=== PATIENT | female | born 1990 | race Caucasian/White ===

== ENCOUNTER 2020-02-15 12:35 | Outpatient (CLI) | payer OTHER, SELFPAY ==
--- NOTE | 2020-02-15 | ECHO_ITS ---
Patient Info Name: Chyna Dominique Age: 29 years : 1990 Gender: Female Ht: 65 in Wt: 145 lbs BSA: 1.75 m2 HR: 92 bpm BP: 121 / 73 mmHg Heart Rhythm: Sinus Rhythm Technical Quality: Fair Exam Date: 02/15/2020 12:54 PM Exam Location: [facility] Patient Status: Outpatient Admit Date: 02/15/2020 Staff Ordering Physician: Misael, Vadim JUNG [employer] Project Manager: Janiya Patel RDCS Attending Provider: Misael, Vadim JUNG Exam Type: CA echo doppler color flow Study Info Indications R07.89 - Other chest pain Complete two-dimensional, color flow and Doppler transthoracic echocardiogram is performed. Summary 1. Left ventricular chamber size, wall thickness, systolic and diastolic function are normal with no regional wall motion abnormalities with an estimated ejection fraction of >70%. 2. Normal valve structure and function. 3. Normal estimated pulmonary pressure. 4. Normal sinus rhythm. Left Ventricle Left ventricular chamber size, wall thickness, systolic and diastolic function are normal with no regional wall motion abnormalities with an estimated ejection fraction of >70%. Left Ventricular Outflow Tract Name Value Normal LVOT 2D LVOT Diameter 1.8 cm LVOT Doppler LVOT Peak Gradient 5 mmHg LVOT Mean Gradient 3 mmHg LVOT VTI 19 cm LVOT VTI/AV VTI Ratio 0.8 LVOT Stroke Volume 47 ml LVOT CO 3.8 l/min LVOT CI 2.2 l/min/m2 Pulmonic Valve Name Value Normal RVOT Doppler RVOT Peak Gradient 2 mmHg PV Doppler PV Peak Gradient 3 mmHg Mitral Valve Name Value Normal MV Doppler MV Decel [place] 388 cm/s2 MV PHT 67 ms MV Area (PHT) 3.3 cm2 4.0-5.0 MV Diastolic Function MV E Peak Velocity 89 cm/s MV A Peak Velocity 42 cm/s MV E/A 2.2 MV Decel Time 230 ms Tricuspid Valve Name Value Normal TV Regurgitation Doppler
== END 2020-02-15 12:36 | disposition home or self-care (01) ==
PROVIDERS: PCP Nurse Practitioner Family; Visit Provider Nurse Practitioner Family
DX: R07.89 Other chest pain (principal)
CPT/HCPCS: 93306

== ENCOUNTER 2022-04-03 10:15 | Emergency (ER) | payer OTHER, SELFPAY ==
[2022-04-03 10:25] VITALS: BP 108/71; PULSE 88; RESP 18; TEMP 36.6; O2SAT 100
--- NOTE | 2022-04-03 10:48 | ED.URI ---
HPI - URI/Sore Throat General Chief Complaint: Upper Respiratory Infection Stated Complaint: Head pressure, congestion Time Seen by Provider: 04/03/22 10:48 Source: patient and RN notes reviewed Mode of arrival: ambulatory Limitations: no limitations History of Present Illness HPI Narrative: 31 y/o female presented for c/o sinus pressure and congestion for 4 days. Started with diarrhea today. Negative home covid test yesterday. Denies sick contacts. Taking otc meds for symptoms. Denies cp, sob, wheezing, fever or chills. MD elicited complaint: cough Related Data Home Medications Medication Instructions Recorded Confirmed No Home Medications 04/03/22 04/03/22 Allergies Allergy/AdvReac Type Severity Reaction Status Date / Time Penicillins Allergy Unknown HIVES Verified 04/03/22 10:23 amoxicillin Allergy Hives Verified 04/03/22 10:23 Review of Systems Review of Systems: CONSTITUTIONAL:denies malaise, chills, sweats, fever EYES: Denies visual changes, redness, or discharge ENT: Reports rhinorrhea, congestion, sinus pain, denies otalgia, sore throat CARDIOVASCULAR: Denies chest pain, palpitations, edema RESPIRATORY: Reports cough, post nasal drainage. Denies dyspnea GASTROINTESTINAL: Denies abdominal pain, nausea, vomiting SKIN: Denies rash or itching MUSCULOSKELETAL: denies myalgia NEUROLOGIC: Denies headache Exam Narrative: GENERAL: Ill-appearing, nontoxic EYES: conjunctivae clear ENT: Mucous membranes moist. TM pearly kang with dull light reflex bilaterally; no tragal tenderness. Oropharynx erythematous without lesions or exudate, no drooling, no hoarseness, no trismus, uvula midline. CHEST: Clear to auscultation, breath sounds equal. HEART: Regular rate and rhythm. No murmur heard. SKIN: Warm, dry, no rash. NEURO: Alert and oriented x3. PSYCH: Normal mood and affect Course Course Emergency Course: Patient is aware of diagnosis, understands and agrees to treatment plan. Anticipatory guidance given. Patient agrees to follow-up as directed and is aware of reasons to seek care at the emergency department. Portions of this record may have been created with voice recognition software Level of Care: Express Care Visit Vital Signs Vital signs: Vital Signs Temperature 97.8 F 04/03/22 10:25 Pulse Rate 88 04/03/22 10:25 Respiratory Rate 18 04/03/22 10:25 Blood Pressure 108/71 04/03/22 10:25 Pulse Oximetry 100 04/03/22 10:25 Oxygen Delivery Room Air 04/03/22 10:25 Temperature 97.8 F 04/03/22 10:25 Pulse Rate 88 04/03/22 10:25 Respiratory Rate 18 04/03/22 10:25 Blood Pressure 108/71 04/03/22 10:25 Pulse Oximetry 100 04/03/22 10:25 Oxygen Delivery Room Air 04/03/22 10:25 reviewed MDM - URI/Sore Throat MDM Narrative Medical decision making narrative: Negative covid result reviewed with pt. advised supportive measures and signs/symptoms to go to the ER. Pt is appropriate for outpt treatment and f/u. Differential Diagnosis Differential diagnosis: Likely upper respiratory infection, sinusitis and viral infection Discharge Plan Discharge Clinical Impression: Upper respiratory infection Qualifiers: URI type: unspecified URI Qualified Code(s): J06.9 - Acute upper respiratory infection, unspecified Patient Disposition: Home, Self-Care Condition: Stable Instructions: Allergic Rhinitis (ED) Additional Instructions: Your Rapid COVID test was negative today. If you are symptomatic with reason to believe you have COVID-19, there is a high possibility your rapid test may not have detected the virus. You should follow appropriate guidelines regarding quarantine, hand washing, mask wearing, and social distancing Rest, stay hydrated. Tylenol, Flonase/nasal spray, Zyrtec, cough syrup and cold/flu medications for symptoms as needed Follow up with your primary care provider as needed in 1-2 weeks Go to the ER for worsening symptoms or concerns Prescriptions: No A
== END 2022-04-03 11:15 | disposition home or self-care (01) ==
PROVIDERS: Emergency Provider Nurse Practitioner Family
DX: J06.9 Acute upper respiratory infection, unspecified (principal); Z20.822 Contact with and (suspected) exposure to COVID-19
CPT/HCPCS: 87426; 99213; C9803; G0463

== ENCOUNTER 2022-07-25 12:42 | Emergency (ER) | payer OTHER, SELFPAY ==
[2022-07-25 12:49] VITALS: BP 109/67; PULSE 94; RESP 18; TEMP 36.6; O2SAT 100
--- NOTE | 2022-07-25 13:08 | ED.NAVMDI ---
HPI - Nausea/Vomiting/Diarrhea General Chief complaint: Nausea/Vomiting/Diarrhea Stated complaint: Abdominal Pain/Nausea/ Vomiting/Diarrhea Time Seen by Provider: 07/25/22 13:14 Source: patient and RN notes reviewed Mode of arrival: ambulatory Limitations: no limitations History of Present Illness HPI Narrative: 31-year-old female presents concern for 4 day history of headache, nausea, abdominal cramping and diarrhea. Reports her menstrual period is heavier than usual. She denies fever, chills, sweats. Denies vomiting. MD elicited complaint: nausea and diarrhea Related Data Allergies Allergy/AdvReac Type Severity Reaction Status Date / Time Penicillins Allergy Unknown HIVES Verified 07/25/22 13:00 amoxicillin Allergy Hives Verified 07/25/22 13:00 Review of Systems Review of Systems: CONSTITUTIONAL: Reports malaise. Denies chills, sweats, or fever. ENT: Denies rhinorrhea, congestion, sinus pain, otalgia or sore throat. CARDIOVASCULAR: Denies chest pain, palpitations, or edema. RESPIRATORY: Denies cough or dyspnea. GASTROINTESTINAL: Denies abdominal pain, vomiting, bloody, or mucous stools. Reports nausea and cramping GENITOURINARY: Denies dysuria or hematuria. MUSCULOSKELETAL: Denies myalgia. NEUROLOGIC: Reports headache. All systems reviewed & are unremarkable except as noted in HPI and below PMFSH Comments At time of signature, agree with nursing past medical, surgical, social and family history. There is no relevant family history pertinent to the presenting complaint Exam Narrative: GENERAL: Well-appearing, well-nourished, and in no acute distress. HEAD: Normocephalic, atraumatic. EYES: PERRLA, conjunctivae clear, and EOMI. ENT: Nares clear, turbinates pink, no rhinorrhea or epistaxis. Mucous membranes moist. Oropharynx without edema, erythema, or lesions. Tonsils not enlarged and without exudate. NECK: Supple. No lymphadenopathy CHEST: Speaks in full sentences. No respiratory distress. HEART: Regular rate and rhythm. ABDOMEN: Soft, flat, nondistended, nontender. No guarding, rebound tenderness, or rigidity. No pulsatile masses. Bowel sounds present in all four quadrants. No organomegaly. Negative Kaiser?s sign. No periumbilical tenderness. No Supra public tenderness or distension. Good femoral pulses bilaterally. No hernia noted. No scars or surface trauma. SKIN: Warm, dry, no rash. NEURO: Alert and oriented x3. PSYCH: Normal mood and affect Course Course Emergency Course: Patient is aware of diagnosis, understands and agrees to treatment plan. Anticipatory guidance given. Patient agrees to follow-up as directed and is aware of reasons to seek care at the emergency department. Portions of this record may have been created with voice recognition software Level of Care: Express Care Visit Vital Signs Vital signs: Vital Signs Temperature 97.9 F 07/25/22 12:49 Pulse Rate 94 07/25/22 12:49 Respiratory Rate 18 07/25/22 12:49 Blood Pressure 109/67 07/25/22 12:49 Pulse Oximetry 100 07/25/22 12:49 Oxygen Delivery Room Air 07/25/22 12:49 Temperature 97.9 F 07/25/22 12:49 Pulse Rate 94 07/25/22 12:49 Respiratory Rate 18 07/25/22 12:49 Blood Pressure 109/67 07/25/22 12:49 Pulse Oximetry 100 07/25/22 12:49 Oxygen Delivery Room Air 07/25/22 12:49 Reviewed. MDM - Nausea/Vomiting/Diarrhea MDM Narrative Medical decision making narrative: Exam findings show no acute concerns or changes; patient is non-toxic appearing and is in no distress. Patient is appropriate for outpatient treatment and follow-up. Differential Diagnosis Differential diagnosis: Likely traveler's diarrhea, gastroenteritis, dehydration and other (Viral syndrome, acute abdomen) Critical Care Time Critical Care Time Critical Care Time: No Discharge Plan Discharge Clinical Impression: Acute viral syndrome Patient Disposition: Home, Self-Care Condition: Stable Instructions: Acute Diarrh
== END 2022-07-25 13:26 | disposition home or self-care (01) ==
PROVIDERS: Emergency Provider Nurse Practitioner
DX: B34.9 Viral infection, unspecified (principal)
CPT/HCPCS: 87804; 99213; G0463

== ENCOUNTER 2023-08-13 10:43 | Emergency (ER) | payer OTHER, SELFPAY ==
[2023-08-13 10:55] VITALS: BP 137/78; PULSE 106; RESP 16; TEMP 37; O2SAT 99
--- NOTE | 2023-08-13 11:30 | ED.URI ---
HPI - URI/Sore Throat General Chief Complaint: Upper Respiratory Infection Stated Complaint: flu exposure,bodyaches,chills,headache Time Seen by Provider: 08/13/23 11:00 Source: patient Mode of arrival: ambulatory Limitations: no limitations History of Present Illness HPI Narrative: Chyna is a 32-year-old female patient presenting to the clinic today with complaints of flu exposure. She reports that she started having symptoms yesterday of body aches, chills, diarrhea, headache, cough, and slight sore throat. Denies any fever or chills. MD elicited complaint: cough, sore throat, rhinorrhea, nasal congestion and other (Body aches) Related Data Allergies Allergy/AdvReac Type Severity Reaction Status Date / Time Penicillins Allergy Unknown HIVES Verified 07/25/22 13:00 amoxicillin Allergy Hives Verified 07/25/22 13:00 Review of Systems Review of Systems: Pertinent positives per HPI. Patient denies any fever, rash, visual changes, dizziness, shortness of breath, chest pain, palpitations, nausea, vomiting, diarrhea, constipation, abdominal pain, or any urinary issues. PMFSH Comments At the time of my signature, I reviewed and agree with the nursing past medical, surgical, social, and family history. There is no relevant family history pertinent to the patient complaint. Exam Narrative: General: Well-developed, well nourished, in no apparent distress Head: Normocephalic, atraumatic Eyes: Pupils equally round and reactive to light bilaterally, EOM intact, sclera and conjunctive clear, no discharge, lids normal Ears: TMs intact and congested, ear canals clear, no drainage, grossly hearing normal. Nose: Nares patent, clear discharge, no inflammation, no sinus tenderness. Mouth: Oral pharynx without lesions or masses, good dentition, MMM. Postnasal drip Neck: Supple, trachea midline, no enlargement of anterior or posterior cervical nodes, no thyroid masses or goiter palpable. Cardio: Regular rate and rhythm, s1 and s2 normal, no murmur appreciated. Resp: Clear to auscultation bilaterally, no rhonchi, rales, wheezing or rubs Course Course Emergency Course: Portions of this record may have been created with voice recognition software. Level of Care: Express Care Visit Vital Signs Vital signs: Vital Signs Temperature 37.0 C 08/13/23 10:55 Pulse Rate 106 H 08/13/23 10:55 Respiratory Rate 16 08/13/23 10:55 Blood Pressure 137/78 08/13/23 10:55 Pulse Oximetry 99 08/13/23 10:55 Oxygen Delivery Room Air 08/13/23 10:55 Temperature 37.0 C 08/13/23 10:55 Pulse Rate 106 H 08/13/23 10:55 Respiratory Rate 16 08/13/23 10:55 Blood Pressure 137/78 08/13/23 10:55 Pulse Oximetry 99 08/13/23 10:55 Oxygen Delivery Room Air 08/13/23 10:55 Vital signs reviewed MDM - URI/Sore Throat MDM Narrative Medical decision making narrative: At the time of visit patient is resting comfortably on the exam table. Patient appears to be nontoxic. COVID and influenza test were completed. COVID testing was positive as well as influenza B testing. Will send in prescription for some Tamiflu. Supportive measures were discussed with the patient and they voiced understanding discharge instructions and agrees to treatment plan. Return precautions reviewed Differential Diagnosis Differential diagnosis: Likely upper respiratory infection, otitis media, sinusitis, viral infection, bronchitis, influenza, pharyngitis and other (COVID) Lab Data Labs: Influenza A Screen Negative Reference Range: Negative Influenza B Screen Positive Reference Range: Negative Discharge Plan Discharge Clinical Impression: Influenza B, COVID-19 Patient Disposition: Home, Self-Care Condition: Stable Instructions: Antibiotic Form, Influenza (ED), COVID-19 (Coronavirus Disease 2019) (
== END 2023-08-13 11:46 | disposition home or self-care (01) ==
PROVIDERS: Emergency Provider Nurse Practitioner Family
DX: J10.1 Influenza due to other identified influenza virus with other respiratory manifestations (principal); U07.1 COVID-19
CPT/HCPCS: 87426; 87804; 99213; C9803; G0463

== ENCOUNTER 2023-11-11 08:54 | Emergency (ER) | payer OTHER, SELFPAY ==
--- NOTE | 2023-11-11 08:57 | ED.NAVMDI ---
HPI - Nausea/Vomiting/Diarrhea General Chief complaint: Nausea/Vomiting/Diarrhea Stated complaint: diarrhea,stomach cramps,bug bites Time Seen by Provider: 11/11/23 08:57 Source: patient Mode of arrival: ambulatory Limitations: no limitations History of Present Illness HPI Narrative: Chyna is a 33-year-old female patient presenting to the clinic today with complaints of stomach cramping, diarrhea, and bug bites times 3-4 days. She reports no fever, chills, or body aches. States that she is having stomach cramping rating it about a 4/10 with 3 episodes of diarrhea today. Denies any blood in her stool. Denies any urinary issues or vaginal discharge. She has tried to take Pepto with some relief. Also reports she thinks she has bed but bites to the left medial hand and 1 on her left lower leg. Areas itch, red, raised. Related Data Allergies Allergy/AdvReac Type Severity Reaction Status Date / Time amoxicillin Allergy Intermediate Hives Verified 11/11/23 08:57 Penicillins Allergy Intermediate HIVES Verified 11/11/23 08:57 Review of Systems Review of Systems: Pertinent positives per HPI. Patient denies any fever, chills, headache, visual changes, dizziness, cough, runny nose, sore throat, shortness of breath, chest pain, palpitations, nausea, vomiting, constipation, or any urinary issues. PMFSH Comments At the time of my signature, I reviewed and agree with the nursing past medical, surgical, social, and family history. There is no relevant family history pertinent to the patient complaint. Exam Narrative: General: Well-developed, well nourished, in no apparent distress. Head: Normocephalic, atraumatic. Cardio: Regular rate and rhythm, s1 and s2 normal, no murmur appreciated. Resp: Clear to auscultation bilaterally, no rhonchi, rales, wheezing or rubs. Abdomen: Soft, pliable, bowel sounds present in all quadrants, mild generalized tender to palpation, no organomegly, no CVAT tenderness. Integumentary: Bude, warm, and dry, red, raised, itchy insect bite to the left medial hand x3 and the left lower leg x1 Course Course Emergency Course: Portions of this record may have been created with voice recognition software. Level of Care: Express Care Visit Vital Signs Vital signs: Vital signs reviewed MDM - Nausea/Vomiting/Diarrhea MDM Narrative Medical decision making narrative: At the time of visit patient is resting comfortably on the exam table. Patient appears to be nontoxic. Plan: I suspect patient has acute diarrhea/abdominal cramping with possible bedbug bites. Prescription for triamcinolone cream and Levsin was sent to the pharmacy. Supportive measures were discussed with the patient and they voiced understanding discharge instructions and agrees to treatment plan. Return precautions reviewed Differential Diagnosis Differential diagnosis: Likely traveler's diarrhea, food poisoning, gastroenteritis, clostridium difficile infection, drug-induced nausea and vomiting, dehydration and other (COVID) Discharge Plan Discharge Clinical Impression: Acute diarrhea, Abdominal cramping Insect bite Qualifiers: Encounter type: initial encounter Site of insect bite: hand Laterality: left Qualified Code(s): S60.562A - Insect bite (nonvenomous) of left hand, initial encounter Patient Disposition: Home, Self-Care Condition: Stable Instructions: Antibiotic Form, Insect Bite or Sting (ED), Acute Diarrhea (ED), Abdominal Pain (ED) Additional Instructions: Take prescription medications only as prescribed-Levsin and triamcinolone cream Increase fluids and stay well hydrated Tylenol/motrin for pain/fever Apply triamcinolone cream as directed Avoid hot showers Avoid scratching and this can cause a secondary infection May take benadryl 25-50mg every 6 hours as needed for itching. BRAT diet for diarrhea May take Imodium as needed for diarrhea Clear liquids x 24 hours then advance as tolerated
[2023-11-11 09:09] VITALS: BP 112/66; PULSE 74; RESP 18; TEMP 36.9; O2SAT 100
== END 2023-11-11 09:34 | disposition home or self-care (01) ==
PROVIDERS: Emergency Provider Nurse Practitioner Family
DX: R19.7 Diarrhea, unspecified (principal); R10.84 Generalized abdominal pain; S60.562A Insect bite (nonvenomous) of left hand, initial encounter; S80.862A Insect bite (nonvenomous), left lower leg, initial encounter; W57.XXXA Bitten or stung by nonvenomous insect and other nonvenomous arthropods, initial encounter
CPT/HCPCS: 99213; G0463

== ENCOUNTER 2024-02-02 12:51 | Emergency (ER) | payer OTHER, SELFPAY ==
--- NOTE | 2024-02-02 13:03 | ED.URI ---
HPI - URI/Sore Throat General Chief Complaint: Upper Respiratory Infection Stated Complaint: sore throat ,neck pain Time Seen by Provider: 02/02/24 13:25 Source: patient and RN notes reviewed Mode of arrival: ambulatory Limitations: no limitations History of Present Illness HPI Narrative: 33-year-old female presents with concern for sore throat, painful swallowing, swollen gland the left side. She reports symptoms started 3 days ago. MD elicited complaint: sore throat Related Data Allergies Allergy/AdvReac Type Severity Reaction Status Date / Time amoxicillin Allergy Intermediate Hives Verified 11/11/23 08:57 Penicillins Allergy Intermediate HIVES Verified 11/11/23 08:57 Review of Systems Review of Systems: CONSTITUTIONAL: Reports malaise. Denies fever. EYES: Denies visual changes, redness, or discharge. ENT: Denies rhinorrhea, congestion, sinus pain, otalgia. Reports painful swallowing, swollen glands and sore throat. CARDIOVASCULAR: Denies chest pain, palpitations, or edema. RESPIRATORY: Denies cough. Denies dyspnea. GASTROINTESTINAL: Denies abdominal pain, nausea, vomiting, diarrhea SKIN: Denies rash or itching. MUSCULOSKELETAL: Denies myalgia. NEUROLOGIC: Denies headache. All systems reviewed & are unremarkable except as noted in HPI and below PMFSH Comments At time of signature, agree with nursing past medical, surgical, social and family history. There is no relevant family history pertinent to the presenting complaint Exam Narrative: GENERAL: Well-appearing, well-nourished, and in no acute distress. HEAD: Normocephalic EYES: PERRLA, conjunctivae clear ENT: Nares clear. Mucous membranes moist. TM pearly kang with sharp light reflex bilaterally; no tragal tenderness. Oropharynx erythematous without lesions. Tonsils enlarged and with exudate, no drooling, no hoarseness, no trismus, uvula midline. NECK: Supple. No lymphadenopathy CHEST: Clear to auscultation, breath sounds equal. No wheezing, rhonchi, rales, or stridor. No respiratory distress, speaks in full sentences. HEART: Regular rate and rhythm. No murmur heard. SKIN: Warm, dry, no rash. NEURO: Alert and oriented x3. PSYCH: Normal mood and affect Course Course Emergency Course: Patient is aware of diagnosis, understands and agrees to treatment plan. Anticipatory guidance given. Patient agrees to follow-up as directed and is aware of reasons to seek care at the emergency department. Portions of this record may have been created with voice recognition software Level of Care: Express Care Visit Vital Signs Vital signs: Vital Signs Temperature 99.3 F 02/02/24 13:07 Pulse Rate 75 02/02/24 13:07 Respiratory Rate 16 02/02/24 13:07 Blood Pressure 117/76 02/02/24 13:07 Pulse Oximetry 100 02/02/24 13:07 Oxygen Delivery Room Air 02/02/24 13:07 Temperature 99.3 F 02/02/24 13:07 Pulse Rate 75 02/02/24 13:07 Respiratory Rate 16 02/02/24 13:07 Blood Pressure 117/76 02/02/24 13:07 Pulse Oximetry 100 02/02/24 13:07 Oxygen Delivery Room Air 02/02/24 13:07 Reviewed. MDM - URI/Sore Throat MDM Narrative Medical decision making narrative: Differential diagnosis considered: [place] virus, strep pharyngitis, allergic rhinitis, upper respiratory tract infection, sinusitis, rhinosinusitis, nasopharyngitis. viral pharyngitis, otitis media, otitis externa, pneumonia, bronchitis, viral cough syndrome, viral syndrome, and influenza. Exam findings show no acute concerns or changes; patient is non-toxic appearing and is in no distress. Patient is appropriate for outpatient treatment and follow-up. Lab Data Attestation: I reviewed the patient's lab results. Labs: Strep Screen Presumptive Negative *(Reference Range: Negative)* Strep Screen Presumptive Negative *(Reference Range: Negative)* Critical Care Time C
[2024-02-02 13:07] VITALS: BP 117/76; PULSE 75; RESP 16; TEMP 37.4; O2SAT 100
== END 2024-02-02 13:35 | disposition home or self-care (01) ==
PROVIDERS: Emergency Provider Nurse Practitioner
DX: J03.90 Acute tonsillitis, unspecified (principal)
CPT/HCPCS: 87081; 87880; 99213; G0463

== ENCOUNTER 2024-07-02 08:44 | Emergency (ER) | payer OTHER, SELFPAY ==
[2024-07-02 08:53] VITALS: BP 118/62; PULSE 85; RESP 19; TEMP 37.3; O2SAT 100
--- NOTE | 2024-07-02 09:04 | ED_ITS ---
HPI - URI/Sore Throat General Chief Complaint: Upper Respiratory Infection Stated Complaint: Left Side Ear/Throat/Head Pain Time Seen by Provider: 07/02/24 09:04 Source: patient Mode of arrival: ambulatory Limitations: no limitations History of Present Illness HPI Narrative: 33-year-old female presents with complaint of left sinusi congestion, left ear pain, sore throat, head pressure. Symptoms for 5 days. Taking ibuprofen to treat symptoms. Not taking any lywv-yni-tsbvbyk sinus medications to treat congestion. Afebrile. Denies cough. All systems reviewed and negative except as noted above. Related Data Home Medications Medication Instructions Recorded Confirmed uwlggqhyzzmv-An-xxbu-minerals 1 tablet PO DAILY 06/01/24 07/02/24 Allergies Allergy/AdvReac Type Severity Reaction Status Date / Time amoxicillin Allergy Intermediate Hives Verified 07/02/24 08:46 Penicillins Allergy Intermediate HIVES Verified 07/02/24 08:46 mold AdvReac Unknown Unknown Verified 07/02/24 08:46 Review of Systems Review of Systems: CONSTITUTIONAL: Denies fever, chills, or sweats. EYES: Denies visual changes, redness, or discharge. ENT: Reports rhinorrhea, congestion, sinus pressure, left ear pain, sore throat CARDIOVASCULAR: Denies chest pain, palpitations, or edema. RESPIRATORY: Denies cough or dyspnea. GASTROINTESTINAL: Denies abdominal pain, nausea, vomiting, or diarrhea. GENITOURINARY: Denies dysuria or hematuria. SKIN: Denies rash or itching. MUSCULOSKELETAL: Denies back pain, joint pain, or myalgia. NEUROLOGIC: Denies headache, numbness, or weakness. PSYCHIATRIC: Denies anxiety or depression. All other systems reviewed are negative, except as documented in HPI. [facility] Family History Family History (Updated 06/01/24 @ 14:52 by Martha Garcia MA) Mother Depression Anxiety Hypertension Father Depression Anxiety Hypertension Grandparent Cancer Grandparent Cancer Hypertension Grandparent Cancer Hypertension Depression Anxiety Grandparent Anxiety Depression Cancer Hypertension Social History Social History Smoking status: Former smoker Comments At time of signature, agree with nursing past medical, surgical, social and family history. There is no relevant family history pertinent to the presenting complaint. Exam Narrative: GENERAL: This is a well-nourished, well-developed patient, in no apparent distress. HEAD: normocephalic, atraumatic. EYES: PERRL. Sclera clear/white. Vision is grossly intact. EARS: External ears normal, auditory canals clear and without drainage, TMs normal without perforation. Hearing grossly intact. NOSE: External nose normal with nasal congestion, erythema swelling to bilateral nares THROAT: Mucous membranes moist, erythema with postnasal drainage. No swelling or exudates NECK: Neck supple, non-tender without lymphadenopathy, masses or thyromegaly. CARDIOVASCULAR: Regular rate and rhythm without murmurs, gallops, or rubs. RESPIRATORY: Clear to auscultation. Breath sounds equal bilaterally. No wheezes, rales, or rhonchi. SKIN: warm, Dry, intact with no suspicious lesions or rash, good texture and tu rgor. NEURO: awake, alert, and oriented to person, place and time. There were no obvious focal neurologic abnormalities. EXTREMITIES: No joint tenderness, effusion, or edema noted. Course Course Level of Care: Express Care Visit Vital Signs Vital signs: Vital Signs Temperature 37.3 C 07/02/24 08:53 Pulse Rate 85 07/02/24 08:53 Respiratory Rate 19 07/02/24 08:53 Blood Pressure 118/62 07/02/24 08:53 Pulse Oximetry 100 07/02/24 08:53 Oxygen Delivery Room Air 07/02/24 08:53 Temperature 37.3 C 07/02/24 08:53 Pulse Rate 85 07/02/24 08:53 Respiratory Rate 19 07/02/24 08:53 Blood Pressure 118/62 07/02/24 08:53 Pulse Oximetry 100 07/02/24 08:53 Oxygen Delivery Room Air 07/02/24 08:53 reviewed MDM - URI/Sore Throat MDM Narrative Medical decision making narrative: negative COVID, influenza and strep test. Patient is well-appearing. Strep culture ordered. Will wait for strep culture prior to treating with antibiotics. Recommend patient treat sinusitis with mgwd-ake-yrumcyy medications. Patient well-appearing, nontoxic. Patient is aware of diagnosis, understands and agrees to treatment plan. Anticipatory guidance given. Patient agrees to follow-up as directed and is aware of reasons to seek care at the emergency department. Portions of this record may have been created with voice recognition software Differential Diagnosis Differential diagnosis: Likely upper respiratory infection, sinusitis, viral infection, influenza and pharyngitis Lab Data Labs: Lab Results 07/02/24 07/02/24 Range/Units 09:17 09:29 POC Influenza A Ag Negative (Negative) POC Influenza B Ag Negative (Negative) POC SARS CoV-2 Ag Negative (Negative) POC Grp A Strep Screen Negative (Negative) Discharge Plan Discharge Clinical Impression: Acute viral sinusitis Patient Disposition: Home, Self-Care Condition: Stable Instructions: Sinusitis (ED) Additional Instructions: Your COVID, influenza and strep test were negative today. Your symptoms are viral and may last 10-14 days. Taking wkjz-qny-belwtwa medication to treat her symptoms such as DayQuil NyQuil cold and Sinus. Use an dqlh-eop-gfjwfyb nasal spray such as Flonase or Nasacort. Drink at least 64 oz of water a day. Follow-up your primary care physician if symptoms are not improving. Prescriptions: No Action ksuwhrarftlc-Zf-ecln-minerals Tablet 1 tablet PO DAILY Follow-up/Referrals: Han Keane MD [Primary Care Provider] - Time of Disposition: 09:37
[2024-07-02 09:20] LABS: EDSTREPNEGPOS1 Negative (Negative)
[2024-07-02 09:33] LABS: EDCOVIDSCREEN Negative (Negative)
[2024-07-02 09:34] LABS: EDINFLUASCREEN Negative (Negative); EDINFLUBSCREEN Negative (Negative)
== END 2024-07-02 09:40 | disposition home or self-care (01) ==
PROVIDERS: Emergency Provider Nurse Practitioner Family; PCP Family Medicine
DX: J01.90 Acute sinusitis, unspecified (principal); Z20.822 Contact with and (suspected) exposure to COVID-19; Z87.891 Personal history of nicotine dependence
CPT/HCPCS: 87081; 87426; 87804; 87880; 99213; G0463